=== PATIENT | female | born 1995 | race Caucasian/White ===

== ENCOUNTER 2017-10-15 13:32 | Emergency (ER) | payer OTHER ==
[~2017-10-15] VITALS: Ht 157.5 cm; Wt 55.7 kg
[2017-10-15 14:29] LABS: CULTURE INDICATED? YES; MICROSCOPIC INDICATED
[2017-10-15] MEDS ORDERED: HYDROcodone/APAP 5/325 TABLET ONE (16:11)
[2017-10-15 16:17] LABS: HCG UR SG 1.003 (1.003-1.030)
[2017-10-15] MEDS ORDERED: HYDROcodone/APAP 5/325 TABLET PO ONE (16:30)
[2017-10-15 17:01] VITALS: BP 128/82
== END 2017-10-15 17:08 | disposition home or self-care (01) ==
LOC: ED 16:27
DX: N30.90 Cystitis, unspecified without hematuria (principal); Z88.0 Allergy status to penicillin
CPT/HCPCS: 81001; 81025; 87077; 87086; 87186; 99284

== ENCOUNTER 2017-10-24 15:39 | Emergency (ER) | payer OTHER ==
[~2017-10-24] VITALS: Ht 157.5 cm; Wt 56.6 kg
[2017-10-24 16:06] VITALS: BP 127/78
== END 2017-10-24 16:31 | disposition home or self-care (01) ==
LOC: ED 16:00
DX: M79.1 Myalgia (principal); B34.9 Viral infection, unspecified
CPT/HCPCS: 99281